=== PATIENT | female | born 1985 | race Caucasian/White ===

== ENCOUNTER 2017-04-16 16:33 | Emergency (ER) | payer OTHER, SELFPAY ==
[2017-04-16 16:55] VITALS: BP 153/104; PULSE 127; RESP 18; TEMP 36.2; O2SAT 99; BMI 37.5
--- NOTE | 2017-04-16 17:18 | HMH.EDUTC ---
[facility] [place] Clinical Impression: Influenza-like illness Disposition: Home, Self-Care Condition on Discharge: Good Instructions: DI for Influenza -- Adult Additional Instructions: * Too late to start tamiflu. Most effective when started within 48 hours of symptoms onset. * Lots of rest * Increase fluids, water, gatorade, powerade, pedialyte if /toddler/child * Monitor Temp. Tylenol every 4 hours as needed no more then 5 times a day or 4000mg in 24 hours and/or ibuprofen every 6 hours as needed no more then 3200mg in 24 hours (as long as your primary care doctor has told you that it is ok to take both) for fever/aches/pain. ER if fever no less than 101 despite tylenol and Ibuprofen * OTC cold/flu/sinus medication is ok but pick one. Do not take multiple different ones as they have similar ingredients and you can overdose on cold medication. * You (or your child) are contagious until no fever, aches, chills x 24 hours without medication for symptoms. Referrals: Parveen Pugh MD [Primary Care Provider] - (IMMEDIATELY for new or worsening symptoms, improvement followed by suddenly feeling worse OR no noticeable improvement over the next 48-72 hours. 911 for difficulty breathing ) Time of Disposition: 17:48 Medical Decision Making Vital Signs: 04/16/17 16:55 Temperature 97.2 F L Temperature Source Temporal Artery Scan Pulse Rate [Right Brachial] 127 H Respiratory Rate 18 Blood Pressure [Right Arm] 153/104 Blood Pressure Mean [Right Arm] 120 Blood Pressure Source [Right Arm] Automatic Cuff Blood Pressure Position [Right Arm] Sitting 02 Sat by Pulse Oximetry 99 Oxygen Delivery Method Room Air - Lab Data Lab results reviewed: Yes: I reviewed the patient's lab results. Lab Results 04/16/17 17:06: Influenza Type A Ag Negative, Influenza Type B Ag Negative - Geraldo Inquiry Pt receiving controlled substance: No [facility] [place] - General Stated complaint: Snotty nose,Congestion, Fatigue Time Seen by Provider: 04/16/17 17:18 Mode of Arrival: Ambulatory Source of Information: Patient Limitations: No Limitations Description of Symptoms (Recalled from Triage Doc. by RN): flu like symptoms x3 days HEENT Symptoms (Recalled from RN notes): No Resp Symptoms (Recalled from RN notes): No Skin Symptoms (Recalled from RN notes): No MS Symptoms (Recalled from RN notes): No Functional Status (Recalled from RN notes): n/a - History of Present Illness Provider Complaint: Here w/ daughter c/o BERNARD. Daughter being seen as well and positive for flu A. Mom w/ fever up to 102, bodyaches, chills, nasal congestion, nonprod cough starting 4 days ago. Aches, chills, fever all better today but cold symptoms still present. Tylenol/motrin help. Fatigue extreme initially but also slowly improving. - Related Data Home Medications Medication Instructions Recorded Confirmed No Known Home Medications [No 04/16/17 04/16/17 Known Home Medications] Allergies Allergy/AdvReac Type Severity Reaction Status Date / Time SULFA (sulfonamide) Allergy Intermediate I-RASH Uncoded 02/20/17 15:12 Sulfamethoxazole Allergy Unknown Uncoded 02/20/17 15:12 Sulfonamide Allergy Unknown Uncoded 02/20/17 15:12 - Worker's Comp Is this a Worker's Comp case?: No Is this an [facility] Worker's Comp?: No Is this a [place] Worker's Comp?: No [facility] History I have reviewed the patient's past medical history: Yes Medical History: Denies:: Cancer, Diabetes Mellitus Type 1, Diabetes Mellitus Type 2, Hypertension Other Medical History: 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
[2017-04-16 17:45] LABS: UTC Influenza A Antigen Negative (Negative); UTC Influenza B Antigen Negative (Negative)
[2017-04-16 17:51] VITALS: BP 168/90; PULSE 102; RESP 20; TEMP 37.1; O2SAT 97
== END 2017-04-16 17:51 | disposition home or self-care (01) ==
PROVIDERS: Emergency Provider Nurse Practitioner Family; Family Provider Family Medicine; PCP Emergency Medicine
DX: J10.1 Influenza due to other identified influenza virus with other respiratory manifestations (principal); Z88.2 Allergy status to sulfonamides
CPT/HCPCS: 87804; 99202

== ENCOUNTER → 2020-03-12 13:08 | Outpatient (CLI) | payer OTHER, SELFPAY | PROVIDERS: PCP Emergency Medicine; Visit Provider Obstetrics & Gynecology Gynecology | DX: Z01.818 Encounter for other preprocedural examination (principal); Z11.52 Encounter for screening for COVID-19 | CPT/HCPCS: U0003 ==

== ENCOUNTER → 2021-03-02 14:24 | Outpatient (CLI) | payer OTHER, SELFPAY | PROVIDERS: Visit Provider Nurse Practitioner | DX: U07.1 COVID-19 (principal) | CPT/HCPCS: C9803; U0003; U0005 ==

== ENCOUNTER → 2022-11-20 11:00 | Outpatient (CLI) | payer OTHER, SELFPAY | PROVIDERS: Visit Provider Nurse Practitioner Family | DX: B35.1 Tinea unguium (principal); M79.674 Pain in right toe(s) | CPT/HCPCS: 87102; 87206; 87220 ==

== ENCOUNTER 2023-12-26 16:33 | Outpatient (CLI) | payer OTHER, SELFPAY ==
[2023-12-26 17:08] LABS: Basophils # 0.1 K/mm3 (0-0.2); Basophils % 1.2 % (0.1-2.0); Eosinophils # 0.2 K/mm3 (0.0-0.4); Eosinophils % 1.9 % (0.1-12.0); Hematocrit 40.4 % (37.0-47.0); Hemoglobin 14.5 g/dL (12.2-16.2); Lymphocytes # 3.3 K/mm3 (0.7-4.5); Lymphocytes % 40.9 % (10-50); Mean Corpuscular HGB Conc 35.8 g/dL (31.8-35.4); Mean Corpuscular Hemoglobin 31.5 pg (27.0-31.2); Mean Corpuscular Volume 88.1 fl (81-99); Mean Platelet Volume 9.6 fl (7.4-10.4); Monocytes # 0.4 K/mm3 (0.1-1.0); Monocytes % 5.3 % (1.7-9.3); Neutrophils % 50.7 % (37.0-80.0); Platelet Count 257 K/mm3 (142-424); Red Blood Count 4.59 M/mm3 (4.20-5.40); Red Cell Distribution Width 13.4 % (11.5-17.5); White Blood Count 7.9 K/mm3 (4.8-10.8)
[2023-12-26 17:26] LABS: Hemoglobin A1C 4.9 % (4.0-6.0)
[2023-12-26 17:35] LABS: Albumin Level 4.6 g/dl (3.5-5.0); Chloride 103 mmol/L (98-107); Sodium 137 mmol/L (136-145)
[2023-12-26 17:36] LABS: Potassium 4.1 mmoL/L (3.5-5.1)
[2023-12-26 17:38] LABS: Alanine Aminotransferase 29 U/L (12-78); Albumin/Globulin Ratio 1.8 (1.1-1.8); Anion Gap 13.1 mEq/L (5-15); Aspartate Amino Transferase 32 U/L (14-36); Blood Urea Nitrogen 11 mg/dl (7-17); Carbon Dioxide 25 mmol/L (22.0-30.0); Cholesterol 250 mg/dl (140-200); Estimated Glomerular Filt Rate 95 ml/min (>60); GFR (African American) 115 ML/MIN (>60); Globulin 2.6 g/dL (1.3-3.2); Total Protein,Serum 7.2 g/dl (6.3-8.2); Triglycerides 382 mg/dl (30-150); VLDL Cholesterol 76 mg/dL (0-40)
[2023-12-26 17:39] LABS: Alkaline Phosphatase 76 U/L (38-126); Bilirubin,Total 0.6 mg/dl (0.2-1.3); Calcium 9.3 mg/dl (8.4-10.2); Chol/HDL Ratio 5.4 (1-3.5); Glucose 94 mg/dl (74-100); HDL Cholesterol 46 mg/dl (40-60)
[2023-12-26 17:50] LABS: Direct LDL Cholesterol 153.11 mg/dL (100-129)
[2023-12-26 18:09] LABS: Thyroid Stimulating Hormone 2.07 uIU/mL (0.465-4.68)
[2023-12-26 18:52] LABS: 25-OH Vitamin D, Total 39.4 ng/mL (30-100)
== END 2023-12-26 23:59 | disposition home or self-care (01) ==
LOC: LAB 16:33
PROVIDERS: PCP Nurse Practitioner Family; Visit Provider Nurse Practitioner Family
DX: I10 Essential (primary) hypertension (principal)
CPT/HCPCS: 36415; 80050; 80053; 80061; 82306; 83036; 84443; 85025

== ENCOUNTER 2025-01-19 09:12 | Outpatient (CLI) | payer OTHER, SELFPAY ==
[2025-01-19 16:09] LABS: Alanine Aminotransferase 25 U/L (12-78); Alkaline Phosphatase 67 U/L (38-126); Aspartate Amino Transferase 28 U/L (14-36); Bilirubin,Total 0.5 mg/dl (0.2-1.3); Blood Urea Nitrogen 14 mg/dl (7-17); Carbon Dioxide 25 mmol/L (22.0-30.0); Cholesterol 160 mg/dl (140-200); Creatinine,Serum 0.70 mg/dl (0.52-1.04); Estimated Glomerular Filt Rate 94 ml/min (>60); GFR (African American) 114 ML/MIN (>60); Total Protein,Serum 7.1 g/dl (6.3-8.2); Triglycerides 276 mg/dl (30-150)
[2025-01-19 16:10] LABS: Calcium 9.2 mg/dl (8.4-10.2); Glucose 103 mg/dl (74-100); HDL Cholesterol 45 mg/dl (40-60)
[2025-01-19 17:37] LABS: Hepatitis C Ab Qual. W/ RFX REACTIVE (Negative)
[2025-01-19 18:07] LABS: Albumin Level 4.5 g/dl (3.5-5.0); Albumin/Globulin Ratio 1.7 (1.1-1.8); Anion Gap 9.6 mEq/L (5-15); Chloride 105 mmol/L (98-107); Globulin 2.6 g/dL (1.3-3.2); Potassium 4.6 mmoL/L (3.5-5.1); Sodium 135 mmol/L (136-145)
[2025-01-20 03:37] LABS: Hepatitis B Surface Antigen Negative (Negative)
--- OUTSIDE RECORDS SUMMARY | 2025-01-20 15:18 | XMS_ITS | Clinical Summary ---
Author Organization Healthcare Address [address] [place] [address] Care Team Providers Care Features Reporter Name Role Phone Pcp, No Primary Care Provider Unavailabl e Allergies Active Allergy Reactions Criticality Noted Date Comments Sulfacetamide Rash,Unknown - Patie nt states they do not know rxn details Low 12/22/2019 Medications lisinopril 10 MG tablet 04/04/2021 Active simvastatin (Zocor) 10 MG tablet 09/22/2024 Active estradiol (Estrace) 0.5 MG tabletIndication s:Menopausal symptoms,History of uterine cancer TAKE 1 TABLET BY MOUTH ONCE DAILY 90 tablet 12/17/2024 Active Active Problems Problem Noted Date Diagnosed Date Enlarged thyroid 12/22/2019 Hypertension 12/22/2019 Encounters Date Type Department Care Team Description 12/17/2024 Refill Obstetrics & Gynecology [address] [place] [address] All Cormier MD Menopausal symptoms; History of uterine cancer from Last 3 Months Immunizations Immunization Administration Dates Next Due Hep A, Adult 10/29/2018,03/08/2018 Hep B, Adolescent or Pediatric 11/27/2002 TD (adult), 2 Lf tetanus tox oid, preservative free, adsorbed 11/27/2002 Family History Medical History Relation Name Comments Lung cancer Maternal Grandmother Cardiac disorder Paternal Grandfather Lung cancer Paternal Grandmother Family history of lung cancer Uterine cancer Paternal Grandmother FH: u terine cancer Relation Name Status Comments Maternal Grandmother Paternal Grandfather Paternal Grandmother Social History Tobacco Use Types Packs/Day Years Used Date Smoking Tobacco: Former Cigarettes 1 4 2 013 - 2016 Smokeless Tobacco: Never Tobacco Cessation:Counseling Given: Not Answered Alcohol Use Standard Drinks/Week Comments Not Currently 0 (1 standard drink = 0.6 oz pur e alcohol) PHQ-2 Answer Date Recorded Patient Health Questionnaire-2 Score 0 10/13/2024 Comments No Sex and Gender Information Value Date Recorded Sex Assigned at Not on file Legal Sex Female 7:54 PM EDT Gender Identity Not on file Sexual Orientation Not on file Last Filed Vital Signs Vital Sign Reading Time Taken Comments Blood Pressure 143/98 10/13/2024 9:32 AM EDT Pulse 86 10/13/2024 9:32 AM EDT Temperature 37.2 C (98.9 F) 04/07/2022 10:16 AM EST Respiratory Rate 20 10/13/2024 9:32 AM EDT Oxygen Saturation 98% 10/13/2024 9:32 AM EDT Inhaled Oxygen Concentration - - Weight 97.9 kg (215 lb 13.3 oz) 10/13/2024 9:32 AM EDT Height 154.9 cm (5' 1 ) 10/13/2024 9:32 AM EDT Body Mass Index 40.78 10/13/2024 9:32 AM EDT Plan of Treatment Upcoming Encounters Date Type Department Care Team (Late st Contact Info) Description 10/15/2025 8:45 AM EDT Office Visit Obstetrics & Gynecology [address] [place] [address] All Cormier MD [address] [place] [address] Health Maintenance Due Date Last Done Comments [facility]-Depression Screening 1987 [facility]-/Child/Adol SDOH Screenings 1987 [facility]-Varicella Vaccines (1 of 2 - 13+ 2-dose series) 11/02/2000 [facility]-DTaP,Tdap,and Td Vaccines (2 - Tdap) 11/28/2002 11/27/2002 [facility]-Hepatitis B Vaccines (2 of 3 - 3-dose series) 12/25/2002 11/27/2002 [facility]- SDOH Screenings 11/02/2005 [facility]-Adult SDOH Screenings 11/02/2005 HPV Vaccines (1 - 3-dose SCDM series) 11/02/2014 [id number] Vaccine ( season) 2024 [facility]-Influenza Vaccine (#1) 2024 [facility]-Pap Smear 10/14/2027 10/13/2024, 11/2023, 10/06/2022, Additional history exists [facility]-Cervical Cancer Screening 10/13/2029 [facility]-HPV/Cotest 10/13/2029 10/13/2024, 11/2023, 10/06/2022, Additional history exists [facility]-Zoster Vaccines (1 of 2) 11/02/2037 [facility]-Hepatitis A Vaccines Aged Out 10/29/2018, 06/2018 No longer eligible based on patient's age to complete this topic [facility]-HIB Vaccines Aged Out No longer e ligible based on patient's age to complete this topic [facility]-IPV Vaccines Aged Out No longer e ligible based on patient's age to complete this topic [facility]-Pneumococcal Vaccine: Pediatrics (0 to 5 Years) and At-Risk Patients (6 to 49 Years) Aged Out No longer eligible based on patient's age to complete this topic [facility]-Rotavirus Vaccines Aged Out No lo nger eligible based on patient's age to complete this topic Procedures Procedure Name Priority Date/Time Associated Diagnosis Comments PAP TEST - CYTOLOGY Routine 10/13/2024 9:55 AM EDT Encounter for annual routine gynecological examination History of uterine cancer from Last 3 Months or Most Recently Relevant to Health Maintenance Results * Pap Test (10/13/2024 9:55 AM EDT) Case Report Cytology Case: [id number] Authorizing Provider: All Cormier MD Collected: 10/13/2024 0955 Ordering Location: Obstetrics & Gynecology Received: 10/14/2024 1126 First Screen: Janet Rapp Rescreen: Sommer Baldwin Specimen: ThinPrep Pap Test, Liquid-Based Vaginal 10/16/2024 5:09 PM EDT [facility] Interpretation NEGATIVE FOR INTRAEPITHELIAL LESION OR MALIGNANCY 10/16/2024 5:09 PM EDT [facility] at 1709 EDT Specimen Adequacy Satisfactory for evaluation. Slide examined with [employer]Pix ThinPrep Imaging System but manually screened for technical reasons. 10/16/2024 5:09 PM EDT [facility] Cervical cytology is a screening test primarily for squamous cancers and precursors and has associated false negative and positive results. New technologies such as liquid based sampling may decrease but will not eliminate all false negative results. Regular screening and follow-up of unexplained clinical signs and symptoms are recommended to minimize false negative results. Please see the ASCCP website (www.asccp.org)fo r followup recommendations. If HPV testing was requested, correlation with the results is suggested (please call Microbiology at [phone] for results). 10/16/2024 5:09 PM EDT [facility] Menstrual Status Not Applicable 10/03 5:09 PM EDT [facility] History of Hysterectomy Hysterectomy with remaining cervix 10/16/2024 5:09 PM EDT [facility] Contraceptive History Not Applicable 10/16/2024 5:09 PM EDT [facility] Screening Type Routine Screen 2024 5:09 PM EDT [facility] High Risk? No 10/16/2024 5:09 PM EDT [facility] HPV Testing Requested? Request HPV Testing Regardless of Pap Test Findings 10/16/2024 5:09 PM EDT [facility] Previous Cancer History Yes 10/16/2024 5:09 PM EDT [facility] Clinical Information Z01.419 - Encounter for annual routine gynecological examination [ICD-10-CM] Z85.42 - History of uterine cancer [ICD-10-CM] 10/16/2024 5:09 PM EDT [facility] Thin Prep Vaginal structure / Unknown 10/13/2024 9:55 AM EDT 10/14/2024 11:26 AM EDT All Cormier MD LAB CYTOLOGY ORDERABLES Final R esult [facility] [address] [place] [address] from Last 3 Months or Most Recently Relevant to Health Maintenance Insurance [employer] [id number] [facility] Care Teams Features Reporter Relationship Specialty Start Date End Date Pcp, [place] [address] PCP - General Family Medicine 04/06/21
--- OUTSIDE RECORDS SUMMARY | 2025-01-20 15:18 | XMS_ITS | Encounter Summary ---
Author Organization Healthcare Address [address] [place] [address] Care Team Providers Care Instructor Dramatic Arts Name Role Phone Pcp, No Primary Care Provider Unavailabl e Encounter Details Date Type Department Care Team (Late Contact Info) Description 10/19/2024 Results Follow-Up Obstetrics & Gynecology [address] [place] [address] All Cormier MD [address] [place] [address] Social History Tobacco Use Types Packs/Day Years Used Date Smoking Tobacco: Former Cigarettes 1 4 2 - 2016 Smokeless Tobacco: Never Alcohol Use Standard Drinks/Week Comments Not Currently 0 (1 standard drink = 0.6 oz pur e alcohol) PHQ-2 Answer Date Recorded Patient Health Questionnaire-2 Score 0 10/13/2024 Comments No Sex and Gender Information Value Date Recorded Sex Assigned at Not on file Legal Sex Female 7:54 PM EDT Gender Identity Not on file Sexual Orientation Not on file documented as of this encounter Plan of Treatment Upcoming Encounters Date Type Department Care Team (Late st Contact Info) Description 10/15/2025 8:45 AM EDT Office Visit Obstetrics & Gynecology [address] [place] [address] All Cormier MD [address] [place] [address] documented as of this encounter Visit Diagnoses Not on filedocumented in this encounter Additional Health Concerns Assessment Noted Time A fall risk assessment has been complete d for the patient 10/13/2024 9:35 AM EDT A Body Mass Index follow-up plan has been documented for the patient 10/13/2024 10:03 AM EDT documented as of this encounter Care Teams Instructor Dramatic Arts Relationship Specialty Start Date End Date Pcp, [place] [address] PCP - General Family Medicine 04/06/21 documented as of this encounter
--- OUTSIDE RECORDS SUMMARY | 2025-01-20 15:18 | XMS_ITS | Encounter Summary ---
Author Organization Healthcare Address [address] [place] [address] Care Team Providers Care House Decorator Name Role Phone Pcp, No Primary Care Provider Unavailabl e Reason for Visit * Reason Comments Med Refill Encounter Details Date Type Department Care Team (Late st Contact Info) Description 12/17/2024 Refill Obstetrics & Gynecology [address] [place] [address] All Cormier MD [address] [place] [address] Menopausal symptoms; History of uterine cancer Social History Tobacco Use Types Packs/Day Years Used Date Smoking Tobacco: Former Cigarettes 1 2016 Smokeless Tobacco: Never Alcohol Use Standard [...] EDT Office Visit Obstetrics & Gynecology [address] [place] [address] All Cormier MD [address] [place] [address] documented as of this encounter Visit Diagnoses Diagnosis Menopausal symptoms Symptomatic menopausal or female climacteric states History of uterine cancer Personal history of malignant neoplasm of other parts of uterus documented in this encounter Additional Health Concerns Assessment Noted Time A fall risk assessment has been complete d for the patient 10/13/2024 9:35 AM EDT A Body Mass Index follow-up plan has been documented for the patient 10/13/2024 10:03 AM EDT documented as of this encounter Care Teams House Decorator Relationship Specialty Start Date End Date Pcp, [place] [address] PCP - General Family Medicine 04/06/21 documented as of this encounter
== END 2025-01-19 23:59 ==
LOC: LAB.DROPOF 01-20 11:19
PROVIDERS: PCP Student in an Organized Health Care Education/Training Program; Visit Provider Student in an Organized Health Care Education/Training Program
DX: E78.2 Mixed hyperlipidemia (principal); Z11.59 Encounter for screening for other viral diseases; I10 Essential (primary) hypertension
CPT/HCPCS: 80053; 80061; 86803; 87340; 87389; 87522